=== PATIENT | male | born 1960 | race Caucasian/White ===

== ENCOUNTER 2016-11-20 11:16 | Emergency (ER) | payer BC ==
[2016-11-20 11:52] VITALS: O2SAT 99
--- NOTE | 2016-11-20 12:02 | ED.PDOC ---
History of Present Illness - General Chief Complaint: Blood Pressure Problem Stated Complaint: HYPERTENSION Time Seen by Provider: 11/20/16 11:57 Additional Information: I WENT INTO THE ROOM TO EVALUATE THE PT. I INTRODUCED MYSELF. HIS PHONE RANG AND HE ANSWERED IT AND STARTED TALKING WITH THE PERSON ON THE PHONE, SO I EXCUSED MYSELF AND SAID I WILL RETURN TO FURTHER EVALUATE HIM. PT THEN TOLD NURSE HE WOULD LIKE TO LEAVE SINCE HE NEEDS TO BE IN [place] BY 2 PM ( 2 HRS FROM NOW). THUS THE PT IS GOING TO LEAVE WITHOUT BEING FULLY EVALUATED. ("LEAVE WITHOUT BEING SEEN") Past Medical History (General) - Patient Medical History Hx Congestive Heart Failure: No Surgical History: other Family Medical History - Family History Father Family History: Unknown Departure - Departure Disposition: Discharge to Home or Self Care Condition: Fair Departure Forms: ED Discharge - Pt. Copy, Patient Portal Self Enrollment
[2016-11-20 13:36] VITALS: BP 146/103
== END 2016-11-20 12:05 | disposition left against medical advice (07) ==
LOC: ER 11:16
DX: Z53.21 Procedure and treatment not carried out due to patient leaving prior to being seen by health care provider (principal)